=== PATIENT | female | born 1945 | race Caucasian/White ===

== ENCOUNTER 2017-09-14 22:06 | Inpatient (IN) | payer OTHER, MEDICARE ==
[~2017-09-14] VITALS: Ht 162.6 cm; Wt 95.0 kg
[~2017-09-14 22:06] MED LIST: CLARITIN,ALAVAR10 MG PO; FISH OIL 1,0001 EA11 PO; HYDROCHLOROTH12.5 M3 PO; IRON325 M1 PO; MULTIVITAMIN1 EAC2 PO; STOOL SOFTENER100 M1 PO; SYNTHROID100 MCG PO; VITAMIN D2000 UNIT PO
[2017-09-15 09:42] VITALS: BP 136/78
[2017-09-15] MEDS ORDERED: ASPIR 8181 M1 PO (09:47)
[2017-09-15 15:50] VITALS: BP 142/60
[2017-09-15 18:30] VITALS: BP 126/72
[2017-09-15 20:12] VITALS: BP 134/71
[2017-09-15 20:39] VITALS: BP 131/60
[2017-09-16 00:20] VITALS: BP 111/52
[2017-09-16 03:55] VITALS: BP 120/55
[2017-09-16 06:04] LABS: CHLORIDE 102 MEQ/L (99-109); CREATININE 0.6 MG/DL (0.6-1.3); GFR ESTIMATE (CALCULATED) > 59 mL/min/; GLUCOSE 106 mg/dL (70-99); POTASSIUM 4.2 MEQ/L (3.7-5.4); SODIUM 141 MEQ/L (136-147); UREA NITROGEN (BUN) 11 mg/dL (9-23)
[2017-09-16 06:07] LABS: HEMATOCRIT 36.2 % (36.0-46.0); MCV 98.1 FL (83-99)
[2017-09-16 06:08] LABS: HEMOGLOBIN 11.8 G/DL (11.9-15.5)
[2017-09-16 11:49] VITALS: BP 161/73
[2017-09-16 15:33] VITALS: BP 146/70
[2017-09-16 20:26] VITALS: BP 162/77
[2017-09-16 20:30] VITALS: BP 145/85
[2017-09-17 00:10] VITALS: BP 142/63
[2017-09-17 04:10] VITALS: BP 138/65
[2017-09-17 05:16] LABS: HEMOGLOBIN 12.2 G/DL (11.9-15.5); MCV 96.4 FL (83-99)
[2017-09-17 08:00] VITALS: BP 139/74
[2017-09-17] MEDS ORDERED: CELECOXIB200 MG PO (08:49)
[2017-09-17] MEDS ORDERED: ELIQUIS2.5 MG PO (08:49)
[2017-09-17] MEDS ORDERED: HYDROCODON-ACE1 EAC7 PO (08:49)
[2017-09-17 12:00] VITALS: BP 163/82
== END 2017-09-17 12:30 | DRG 470 ==
LOC: ENRESERV 22:06 → 2SOUTH 09-15 09:09 → 3WEST 09-15 15:34
PROVIDERS: Orthopaedic Surgery
PROC: 0SRD0J9 Replacement of Left Knee Joint with Synthetic Substitute, Cemented, Open Approach (ICD-10-PCS; principal; 2017-09-15)
DX: M17.12 Unilateral primary osteoarthritis, left knee (principal); I10 Essential (primary) hypertension; M10.9 Gout, unspecified; E03.9 Hypothyroidism, unspecified; E78.5 Hyperlipidemia, unspecified; Z87.891 Personal history of nicotine dependence
CPT/HCPCS: 80048; 85014; 85018; C1713; J0131; J0690; J1885; J2250; J2405; J2795; J3010; J7050; J7120; Q0175; S0020

== ENCOUNTER 2018-01-04 21:59 | Inpatient (IN) | payer OTHER, MEDICARE ==
[~2018-01-04] VITALS: Ht 162.6 cm; Wt 84.0 kg
[~2018-01-04 21:59] MED LIST changes: +ASPIR 8181 M1 PO; +CELECOXIB200 MG PO; +ELIQUIS2.5 MG PO; +HYDROCODON-ACE1 EAC7 PO
[2018-01-05 07:42] VITALS: BP 125/67
[2018-01-05 15:04] VITALS: BP 117/61
[2018-01-05 20:30] VITALS: BP 119/65
[2018-01-06 00:05] VITALS: BP 124/59
[2018-01-06 04:20] VITALS: BP 160/69
[2018-01-06 06:31] LABS: HEMATOCRIT 37.3 % (36.0-46.0); MCV 94.9 FL (83-99)
[2018-01-06 06:43] LABS: HEMOGLOBIN 12.3 G/DL (11.9-15.5)
[2018-01-06 07:04] LABS: CHLORIDE 104 MEQ/L (99-109); CREATININE 0.7 MG/DL (0.6-1.3); GFR ESTIMATE (CALCULATED) > 59 mL/min/; GLUCOSE 123 mg/dL (70-99); POTASSIUM 4.1 MEQ/L (3.7-5.4); SODIUM 141 MEQ/L (136-147); UREA NITROGEN (BUN) 12 mg/dL (9-23)
[2018-01-06 08:15] VITALS: BP 108/58
[2018-01-06 15:40] VITALS: BP 132/57
[2018-01-06 20:00] VITALS: BP 150/78
[2018-01-07 00:10] VITALS: BP 152/67
[2018-01-07 04:28] VITALS: BP 163/72
[2018-01-07 06:16] LABS: HEMATOCRIT 37.2 % (36.0-46.0); HEMOGLOBIN 12.3 G/DL (11.9-15.5); MCV 94.2 FL (83-99)
[2018-01-07 08:48] VITALS: BP 182/80
[2018-01-07] MEDS ORDERED: OXYCODONE HCL5 MG PO (09:38)
[2018-01-07] MEDS ORDERED: ELIQUIS2.5 MG PO (09:38)
[2018-01-07] MEDS ORDERED: CELECOXIB200 MG PO (09:38)
[2018-01-07 11:54] VITALS: BP 174/79
== END 2018-01-07 15:15 | DRG 470 ==
LOC: ENRESERV 21:59 → 2SOUTH 01-05 07:03 → 3WEST 01-05 14:39 → 2SOUTH 01-05 14:44 → 3WEST 01-07 15:15
PROVIDERS: Orthopaedic Surgery
PROC: 0SRC0J9 Replacement of Right Knee Joint with Synthetic Substitute, Cemented, Open Approach (ICD-10-PCS; principal; 2018-01-05)
DX: M17.11 Unilateral primary osteoarthritis, right knee (principal); I10 Essential (primary) hypertension; M10.9 Gout, unspecified; E03.9 Hypothyroidism, unspecified; Z96.652 Presence of left artificial knee joint; Z87.891 Personal history of nicotine dependence
CPT/HCPCS: 80048; 85014; 85018; C1713; J0131; J0690; J1100; J1200; J1885; J2250; J2405; J2795; J3010; J7050; J7120; Q0175